=== PATIENT | female | born 1995 | race African-American/Black ===

== ENCOUNTER 2019-06-11 02:58 | Inpatient (IN) | payer MEDICAID ==
[~2019-06-11] VITALS: Ht 160 cm; Wt 129.3 kg
[2019-06-11] MEDS ORDERED: LIDOCAINE HCL 1% 20ML VIAL (Pyxis) INJ INFIL SCH (04:15)
[2019-06-11] MEDS ORDERED: PNV1TABL76 PO (04:15)
[2019-06-11] MEDS ORDERED: DEXT 5%/LR + PITOCIN 20UNITS/L 1,000 ML IV SCH (04:15)
[2019-06-11] MEDS ORDERED: LACTATED RINGERS 1,000 ML IV SCH (04:15)
[2019-06-11] MEDS ORDERED: NALOXONE HCL 0.4 MG/ML 1ML VIAL IM PRN (04:15)
[2019-06-11] MEDS ORDERED: BUTORPHANOL TARTRATE 2 MG/ML VIAL IV PRN ×2 (04:15→23:15)
[2019-06-11] MEDS ORDERED: CARBOPROST TROMETHAMINE 250 MCG/ML AMPUL IM PRN (04:15)
[2019-06-11] MEDS ORDERED: METHYLERGONOVINE MALEATE 0.2 MG/ML IM PRN (04:15)
[2019-06-11] MEDS ORDERED: AMPICILLIN 2,000 MG in SODIUM CHLORIDE 0.9% 100 ML IV SCH (05:30)
[2019-06-11 05:35] LABS: BASOPHILS % 0.2 % (0.0-2.0); EOSINOPHILS % 1.6 % (0.0-5.0); HEMATOCRIT. 37.4 % (36.0-48.0); HEMOGLOBIN. 12.5 g/dL (12.0-16.0); LYMPHOCYTES % 22.5 % (20.0-50.0); MEAN CORPUSCULAR HEMOGLOBIN 29.5 pg (28.0-32.0); MEAN CORPUSCULAR VOLUME 87.9 fL (81.0-99.0); MEAN PLATELET VOLUME 9.2 fl (7.4-10.4); MONOCYTES % 10.7 % (2.0-8.0); PLATELET 160 x1000/uL (130-400); RED BLOOD CELL COUNT 4.25 mill/uL (4.2-5.4); RED CELL DISTRIBUTION WIDTH 14.6 % (11.6-14.6)
[2019-06-11 05:42] LABS: INR 0.9; PROTHROMBIN TIME 9.7 sec (9.6-11.0)
[2019-06-11 05:53] LABS: CLARITY URINE CLEAR (CLEAR); COLOR URINE YELLOW (YELLOW); KETONES URINE NEGATIVE (NEGATIVE); LEUKOCYTE ESTERASE URINE NEGATIVE (NEGATIVE); NITRITE URINE NEGATIVE (NEGATIVE); OCCULT BLOOD URINE 2+ (NEGATIVE); PH URINE 6.5 (4.5-8.0); PROTEIN URINE NEGATIVE (NEGATIVE); SPECIFIC GRAVITY URINE 1.004 (1.005-1.030); UROBILINOGEN URINE 0.2 E.U./dL (0.2-1.0)
[2019-06-11] MEDS ORDERED: DEXT 5%/LR + PITOCIN 20UNITS/L 1,000 ML IV ONE (06:30)
[2019-06-11 06:43] LABS: *AMPHETAMINES SCREEN URINE NEGATIVE (NEGATIVE); *BARBITURATES SCREEN URINE NEGATIVE (NEGATIVE); *BENZODIAZEPINES SCREEN URINE NEGATIVE (NEGATIVE); *COCAINE SCREEN URINE NEGATIVE (NEGATIVE); METHADONE URINE SCREEN NEGATIVE (NEGATIVE); OPIATES URINE SCREEN NEGATIVE (NEGATIVE)
[2019-06-11 06:44] LABS: CANNABINOID URINE SCREEN NEGATIVE (NEGATIVE); PHENCYCLIDINE URINE SCREEN NEGATIVE (NEGATIVE)
[2019-06-11 06:54] LABS: CHLORIDE 109 mEq/L (98-107)
[2019-06-11] MEDS ORDERED: SERT50TA PO (06:54)
[2019-06-11] MEDS ORDERED: DIPH25CA83 PO (06:55)
[2019-06-11] MEDS: LACTATED RINGERS 500ML 500 ML IV SCH ×6 (09:28→23:01)
[2019-06-11] MEDS ORDERED: ONDANSETRON HCL 4MG/2ML INJ IV PRN (09:30)
[2019-06-11] MEDS ORDERED: DIPHENHYDRAMINE 50MG/ML VIAL IV PRN ×2 (09:30→12:00)
[2019-06-11] MEDS ORDERED: ROPIVACAINE HCL/PF EPIDURAL 200 ML EPI SCH ×2 (09:30→12:00)
[2019-06-11 11:08] LABS: HEPATITIS B SURFACE ANTIGEN NEGATIVE
[2019-06-11] MEDS: AMPICILLIN 1,000 MG in SODIUM CHLORIDE 0.9% 50 ML IV SCH ×3 (12:29→23:25)
[2019-06-11] MEDS ORDERED: FENTANYL CITRATE/PF 50MCG/ML 2ML VIAL ONE (14:33)
[2019-06-11] MEDS ORDERED: BUPIVACAINE HCL/PF 0.25% (2.5MG/ML) 10ML ONE (14:34)
[2019-06-11] MEDS: ONDANSETRON HCL 4MG/2ML INJ IV PRN (22:37)
[2019-06-12] MEDS: LACTATED RINGERS 500ML 500 ML IV SCH ×2 (01:13→03:42)
[2019-06-12] MEDS ORDERED: ROPIVACAINE HCL/PF EPIDURAL 200 ML EPI SCH (03:15)
[2019-06-12] MEDS ORDERED: SERTRALINE HCL 50MG TABLET PO SCH (04:00)
[2019-06-12] MEDS: ONDANSETRON HCL 4MG/2ML INJ IV PRN (04:17)
[2019-06-12] MEDS ORDERED: MINERAL OIL 30ML BOTTLE PO NR (06:00)
[2019-06-12] MEDS ORDERED: DEXT 5%/LR + PITOCIN 20UNITS/L 1,000 ML IV SCH (07:36)
[2019-06-12] MEDS ORDERED: RHO(D) IMMUNE GLOBULIN 300 MCG/SYR IM PRN (07:45)
[2019-06-12] MEDS ORDERED: HEMORRHOIDAL SUPP PR PRN (07:45)
[2019-06-12] MEDS ORDERED: IBUPROFEN 400MG TABLET PO PRN (07:45)
[2019-06-12 08:30] VITALS: BP 116/66
[2019-06-12] MEDS ORDERED: TETANUS, DIPHTHERIA, PERTUSSIS VAC/PF 0.5ML (>7YR OLD) IM ONE (12:00)
[2019-06-12] MEDS ORDERED: INFLUENZA VIRUS VACCINE(AFLURIA) 0.5ML SYR IM ONE (12:00)
[2019-06-12] MEDS: PRENATAL VIT/FE FUMARATE/FA TABLET PO SCH (14:01)
[2019-06-12] MEDS: IBUPROFEN 800MG TABLET PO PRN (15:30)
[2019-06-12 16:20] VITALS: BP 122/74
[2019-06-12 20:00] VITALS: BP 100/54
[2019-06-12] MEDS: DOCUSATE SODIUM 100MG CAPSULE PO SCH (21:00)
[2019-06-13 04:00] VITALS: BP 131/83
[2019-06-13] MEDS: IBUPROFEN 800MG TABLET PO PRN ×2 (06:55→21:48)
[2019-06-13 07:10] LABS: BASOPHILS % 0.3 % (0.0-2.0); HEMATOCRIT. 35.5 % (36.0-48.0); HEMOGLOBIN. 11.8 g/dL (12.0-16.0); LYMPHOCYTES % 20.3 % (20.0-50.0); MEAN CORPUSCULAR HEMOGLOBIN 29.5 pg (28.0-32.0); MEAN PLATELET VOLUME 9.2 fl (7.4-10.4); MONOCYTES % 9.5 % (2.0-8.0); NEUTROPHILS % 67.9 % (40.0-76.0); PLATELET 157 x1000/uL (130-400); RED BLOOD CELL COUNT 3.98 mill/uL (4.2-5.4); RED CELL DISTRIBUTION WIDTH 14.8 % (11.6-14.6)
[2019-06-13 08:00] VITALS: BP 124/83
[2019-06-13] MEDS: PRENATAL VIT/FE FUMARATE/FA TABLET PO SCH (08:22)
[2019-06-13] MEDS: SERTRALINE HCL 50MG TABLET PO SCH (08:22)
[2019-06-13 16:09] VITALS: BP 122/72
[2019-06-13 19:30] VITALS: BP 136/81
[2019-06-13] MEDS: DOCUSATE SODIUM 100MG CAPSULE PO SCH (21:48)
[2019-06-13] MEDS ORDERED: DIPHENHYDRAMINE 50MG CAPSULE ONE (22:27)
[2019-06-13] MEDS ORDERED: DIPHENHYDRAMINE 50MG CAPSULE PO PRN (22:30)
[2019-06-14 04:00] VITALS: BP 131/76
[2019-06-14] MEDS ORDERED: IBUP-2030 PO (07:21)
[2019-06-14] MEDS ORDERED: FERR325T6 MT (07:21)
[2019-06-14 07:30] VITALS: BP 134/84
[2019-06-14] MEDS ORDERED: PENICILLIN G BENZATHINE 2,400,000 UNITS/4ML SYR IM NR (08:00)
[2019-06-14] MEDS: SERTRALINE HCL 50MG TABLET PO SCH (08:54)
[2019-06-14] MEDS: IBUPROFEN 800MG TABLET PO PRN (08:54)
[2019-06-14] MEDS ORDERED: MEDROXYPROGESTERONE ACETATE 150MG/ML VIAL IM NR (09:00)
== END 2019-06-14 13:35 | disposition home or self-care (01) | DRG 560 ==
LOC: 8 EST LDRP 02:58 → OBSVTOIN 02:58 → 8EST 06-12 08:15
PROVIDERS: ADMIT Obstetrics & Gynecology; ATTEND Obstetrics & Gynecology
PROC: 10E0XZZ Delivery of Products of Conception, External Approach (ICD-10-PCS; principal; 2019-06-12)
PROC: 3E0R3BZ Introduction of Anesthetic Agent into Spinal Canal, Percutaneous Approach (ICD-10-PCS; 2019-06-12)
PROC: 00HU33Z Insertion of Infusion Device into Spinal Canal, Percutaneous Approach (ICD-10-PCS; 2019-06-12)
DX: O42.92 Full-term premature rupture of membranes, unspecified as to length of time between rupture and onset of labor (principal); O10.92 Unspecified pre-existing hypertension complicating childbirth; O98.12 Syphilis complicating childbirth; F43.10 Post-traumatic stress disorder, unspecified; J45.909 Unspecified asthma, uncomplicated; O99.344 Other mental disorders complicating childbirth; O99.52 Diseases of the respiratory system complicating childbirth; O90.81 Anemia of the puerperium; D64.9 Anemia, unspecified; Z37.0 Single live birth; Z3A.38 38 weeks gestation of pregnancy
CPT/HCPCS: 36415; 76805; 76818; 80053; 80305; 81003; 84550; 85025; 85384; 86592; 86593; 86703; 86762; 86780; 86850; 86900; 87340; 90686; 90715; 99281; G0378; J0290; J0561; J0595; J1050; J1200; J2405; J2590; J2795; J3010; J3490; J7050; J7120; Q0163; A4315

== ENCOUNTER 2025-01-24 13:02 | Emergency (ER) | payer BC, MEDICAID ==
[~2025-01-24] VITALS: Ht 170.2 cm; Wt 100.0 kg
[~2025-01-24 13:02] MED LIST: FERR325T6 MT; HYDR-4001 MT; IBUP-2030 PO; PNV1TABL76 PO; SERT50TA PO
[2025-01-24 13:04] VITALS: O2SAT 98
[2025-01-24 14:50] LABS: BASOPHILS % 0.6 % (0.0-2.0); EOSINOPHILS % 3.3 % (0.0-5.0); HEMATOCRIT. 35.9 % (36.0-48.0); HEMOGLOBIN. 12.1 g/dL (12.0-16.0); LYMPHOCYTES % 30.2 % (20.0-50.0); MEAN PLATELET VOLUME 8.0 fl (7.4-10.4); MONOCYTES % 7.3 % (2.0-8.0); NEUTROPHILS % 58.6 % (40.0-76.0); PLATELET 208 x1000/uL (130-400); RED BLOOD CELL COUNT 4.26 mill/uL (4.2-5.4); RED CELL DISTRIBUTION WIDTH 16.1 % (11.6-14.6)
[2025-01-24 14:57] LABS: CREATININE 0.6 mg/dL (0.6-1.0); UREA NITROGEN BLOOD < 5 mg/dL (9-23)
[2025-01-24 15:09] LABS: INR 1.0
[2025-01-24 15:16] LABS: B-HCG QUANTITATIVE 6451 mIU/mL (<6)
[2025-01-24 15:31] LABS: HCG SCREEN POSITIVE
[2025-01-24 17:05] VITALS: BP 133/84; PULSE 76; RESP 21; TEMP 37.1; O2SAT 97
== END 2025-01-24 17:29 | disposition home or self-care (01) ==
LOC: ER 13:02 → CMPBEDREQ 18:51
DX: O03.4 Incomplete spontaneous abortion without complication (principal); O36.4XX0 Maternal care for intrauterine death, not applicable or unspecified; R10.2 Pelvic and perineal pain; J45.909 Unspecified asthma, uncomplicated; Z79.899 Other long term (current) drug therapy; Z3A.10 10 weeks gestation of pregnancy
CPT/HCPCS: 36415; 76801; 80048; 80307; 80329; 84702; 84703; 85025; 86850; 86900; 99284